=== PATIENT | female | born 1950 | race Caucasian/White ===

== ENCOUNTER 2018-04-10 20:04 | Observation (INO) | payer MEDICARE, OTHER ==
[2018-04-10] MEDS ORDERED: diphenhydrAMINE 50 MG/ML SDV IVPUSH ONE (20:08)
[2018-04-10] MEDS ORDERED: Lactated Ringers 1,000 ML IV ONE (20:08)
[2018-04-10] MEDS ORDERED: LORazepam 2 MG/ML SDV IVPUSH ONE (21:28)
[2018-04-10] MEDS ORDERED: Aspirin 81 MG Tab.Chew PO ONE (21:44)
--- NOTE | 2018-04-10 22:43 | EDM.PDOC ---
ED HPI GENERAL MEDICAL PROBLEM - General Chief Complaint: Syncope Stated Complaint: DIZZY,SWEATY Time Seen by Provider: 04/10/18 20:10 Source of Information: Reports: Patient, RN History Limitations: Reports: Other (no old records) - History of Present Illness INITIAL COMMENTS - FREE TEXT/NARRATIVE: 67 yo female presents with dizziness, nausea, vomiting, and diaphoresis that came on suddenly while driving. No hx of vertigo, afib, CVA, elevated cholesterol, or AODM. Has a hx of borderline HTN and a FHx of CAD. No hx of tobacco use. Has no pain anywhere including her chest. Is traveling through the area on their way back to [facility]. 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 (see below) (none) denies pain Pain Score (Numeric/FACES): 0 - Related Data Allergies Allergy/AdvReac Type Severity Reaction Status Date / Time amoxicillin Allergy Rash Verified 04/10/18 20:48 Home Meds: Home Meds NK [No Known Home Meds] 04/10/18 [History] Past Medical History HEENT History: Reports: Glaucoma, Impaired Vision Cardiovascular History: Reports: Hypertension Respiratory History: Reports: Asthma 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 Denies: Fever, Fatigue HEENT: Reports: Vertigo Respiratory: Reports: No Symptoms Cardiovascular: Reports: No Symptoms Endocrine: Reports: No Symptoms GI/Abdominal: Reports: No Symptoms : Reports: No Symptoms Musculoskeletal: Reports: No Symptoms Skin: Reports: Diaphoresis (now gone) Neurological: Reports: Dizziness, Difficulty Walking, Gait Disturbance. Denies : Confusion, Headache, Numbness, Paresthesia, Seizure, Syncope, Tingling, Tremors, Trouble Speaking, Change in Speech Psychiatric: Reports: No Symptoms ED EXAM, DIZZINESS - Physical Exam Exam: See Below Exam Limited By: No Limitations General Appearance: Alert, WD/WN, Mild Distress Eye Exam: Bilateral Eye: Nystagmus (subtle, not pronounced) Ears: Normal External Exam, Normal Canal, Hearing Grossly Normal, Normal TMs Nose: Normal Inspection, Normal Mucosa, No Blood Throat/Mouth: Normal Inspection, Normal Lips, Normal Oropharynx, Normal Voice, No Airway Compromise Head Exam: Atraumatic, Normocephalic Vertigo: reproducible (better with lying still, worse again with any movement.) Neck: Normal Inspection, Supple, Non-Tender. No: Carotid Bruit Respiratory/Chest: No Respiratory Distress, Lungs Clear, Normal Breath Sounds, No Accessory Muscle Use Cardiovascular: Regular Rate, Rhythm, No Edema GI/Abdominal: Normal Bowel Sounds, Soft, Non-Tender, No Distention Neurological: Alert, Normal Mood/Affect, Normal Dorsiflexion, CN II-XII Intact, No Motor/Sensory Deficits, Oriented x 3, Difficulty Walking. No: Normal Gait Back Exam: Normal Inspection Extremities: Normal Inspection, Normal Range of Motion, Non-Tender, No Pedal Edema Psychiatric: Normal Affect, Normal Mood Skin Exam: Warm, Dry, Intact, Normal Color, No Rash Course - Vital Signs Text/Narrative:: Sx's improved after diphenhydramine and a liter of LR, not able to walk still. Sx's reduced further after lorazepam, but still not able to walk. No longer experiencing nausea. Last Recorded V/S: Last Vital Signs Temp 36.2 C 04/10/18 20:09 Pulse 62 04/10/18 23:06 Resp 14 04/10/18 23:06 BP 135/90 04/10/18 23:06 Pulse Ox 95 04/10/18 23:06 Orthostatic Blood Pressure [ 138/87 Standing] Orthostatic Blood Pressure [ 140/88 Sitting] Orthostatic Blood Pressure [ 144/85 Supine] - Orders/Labs/Meds Orders: Active Orders 24 hr Category Date Time Status Head wo Cont [CT] Stat Exams 04/10/18 22:41 Taken Lactated Ringers @ 150 MLS/HR(1,000ml) Med 04/10/18 23:30 Ordered Lactated Ringers [Ringers, Lactated] 1,000 ml IV ASDIRECTED Medication Orders Lactated Ringer's (Ringers, Lactated) 1,000 mls @ 150 mls/hr IV ASDIRECTED RAFI Last Admin: 04/10/18 23:28 Dose: 150 mls/hr Labs: Laboratory Tests 04/10/18 04/10/18 04/10/18 Range/Units 22:42 22:42 23:18 WBC 13.2 H (4.5-11.0) K/uL RBC 3.89 (3.30-5.50) M/uL Hgb 11.8 L (12.0-15.0) g/dL Hct 35.5 L (36.0-48.0) % MCV 91 (80-98) fL MCH 30 (27-31) pg MCHC 33 (32-36) % Plt Count 255 (150-400) K/uL Sodium 140 (140-148) mmol/L Potassium 3.7 (3.6-5.2) mmol/L Chloride 107 (100-108) mmol/L Carbon Dioxide 25 (21-32) mmol/L Anion Gap 8.3 (5.0-14.0) mmol/L BUN 24 H (7-18) mg/dL Creatinine 0.8 (0.6-1.0) mg/dL Est Cr Clr Drug Dosing 66.36 mL/min Estimated GFR (MDRD) > 60 (>60) Glucose 116 H (74-106) mg/dL Calcium 9.0 (8.5-10.1) mg/dL Urine Color Yellow Urine Appearance Clear Urine pH 5.0 (4.5-8.0) Ur Specific [place] 1.030 (1.008-1.030) Urine Protein Negative (NEGATIVE) mg/dL Urine Glucose (UA) Normal (NEGATIVE) mg/dL Urine Ketones Negative (NEGATIVE) mg/dL Urine Occult Blood Negative (NEGATIVE) Urine Nitrite Negative (NEGATIVE) Urine Bilirubin Negative (NEGATIVE) Urine Urobilinogen Normal (NORMAL) mg/dL Ur Leukocyte Esterase Negative (NEGATIVE) Urine RBC 0-5 (0-5) Urine WBC 0-5 (0-5) Ur Epithelial Cells Few Amorphous Sediment Few Urine Bacteria Not seen Urine Mucus Not seen Meds: Medications Generic Name Dose Route Start Last Admin Trade Name Edie PRN Reason Stop Dose Admin Lactated Ringer's 1,000 mls @ 150 mls/hr 04/10/18 23:30 04/10/18 23:28 Ringers, Lactated IV 150 mls/hr ASDIRECTED RAFI Administration Discontinued Medications Generic Name Dose Route Start Last Admin Trade Name Edie PRN Reason Stop Dose Admin Aspirin 324 mg 04/10/18 21:44 04/10/18 21:51 Aspirin PO 04/10/18 21:45 324 mg ONETIME ONE Administration Diphenhydramine HCl 50 mg 04/10/18 20:08 04/10/18 20:30 Benadryl IVPUSH 04/10/18 20:09 50 mg ONETIME ONE Administration Lactated Ringer's 1,000 mls @ 1,000 mls/hr 04/10/18 20:08 04/10/18 20:30 Ringers, Lactated IV 04/10/18 21:07 1,000 mls/hr BOLUS ONE Administration Lorazepam 1 mg 04/10/18 21:28 04/10/18 21:45 Ativan IVPUSH 04/10/18 21:29 1 mg ONETIME ONE Administration - Radiology Interpretation Free Text/Narrative:: Head CT-neg CT Results Date: 04/10/18 CT Results Time: 23:30 Departure - Departure Time of Disposition: 23:35 Disposition: Refer to Observation Condition: Fair Clinical Impression: Vertigo, Ataxia Nausea and vomiting Qualifiers: Vomiting type: unspecified Vomiting Intractability: non-intractable Qualified Code(s): R11.2 - Nausea with vomiting, unspecified - Discharge Information *PRESCRIPTION DRUG MONITORING PROGRAM REVIEWED*: Not Applicable *COPY OF PRESCRIPTION DRUG MONITORING REPORT IN PATIENT JOSE: Not Applicable Referrals: PCP,None [Primary Care Provider] - Forms: ED Department Discharge - My Orders Last 24 Hours: My Active Orders 04/10/18 22:41 Head wo Cont [CT] Stat 04/10/18 23:30 Lactated Ringers @ 150 MLS/HR(1,000ml) Lactated Ringers [Ringers, Lactated] 1, 000 ml IV ASDIRECTED - Assessment/Plan Last 24 Hours: My Active Orders 04/10/18 22:41 Head wo Cont [CT] Stat 04/10/18 23:30 Lactated Ringers @ 150 MLS/HR(1,000ml) Lactated Ringers [Ringers, Lactated] 1, 000 ml IV ASDIRECTED
[2018-04-10] MEDS: Lactated Ringers 1,000 ML IV SCH (23:28)
--- NOTE | 2018-04-10 23:41 | PCM.HP ---
H&P History of Present Illness - General Date of Service: 04/10/18 Admit Problem/Dx: Admission Diagnosis/Problem Admission Diagnosis/Problem Vertigo Source of Information: Patient, Provider, RN History Limitations: Reports: Other (sedated) - History of Present Illness Initial Comments - Free Text/Narative: 67 yo female presents with dizziness, nausea, vomiting, and diaphoresis that came on suddenly while driving. No hx of vertigo, afib, CVA, elevated cholesterol, or AODM. Has a hx of borderline HTN and a FHx of CAD. No hx of tobacco use. Has no pain anywhere including her chest. Is traveling through the area on their way back to [facility] [place]. Onset: Today, Sudden Onset of Symptoms: Reports: Sudden Duration of Symptoms: Reports: Hour(s): Location: Reports: Generalized (vertigo with nauea, vomiting, loss of balance) Severity: Severe Improves with: Reports: Rest Worsens with: Reports: Movement Associated Symptoms: Reports: Nausea/Vomiting, Other (loss of balance) denies pain Pain Score (Numeric/FACES): 0 - Related Data Allergies/Adverse Reactions: Allergies Allergy/AdvReac Type Severity Reaction Status Date / Time amoxicillin Allergy Rash Verified 04/10/18 20:48 Home Medications: Home Meds NK [No Known Home Meds] 04/10/18 [History] Past Medical History HEENT History: Reports: Glaucoma, Impaired Vision Cardiovascular History: Reports: Hypertension 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: Reports: Asthma 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.) H&P Review of Systems - Review of Systems: Review Of Systems: See Below General: Reports: Other (vertigo with nausea, vomiting, loss of balance.) HEENT: Reports: Glasses Pulmonary: Reports: No Symptoms Cardiovascular: Reports: Lightheadedness (vertigo, sudden onset this evening while driving.) Gastrointestinal: Reports: Nausea, Vomiting Genitourinary: Reports: No Symptoms Musculoskeletal: Reports: No Symptoms Skin: Reports: No Symptoms Psychiatric: Reports: No Symptoms Neurological: Reports: Dizziness, Difficulty Walking (due to severe dizziness) Hematologic/Lymphatic: Reports: No Symptoms Immunologic: Reports: No Symptoms Exam - Exam Exam: See Below - Vital Signs Vital Signs: Last Vital Signs Temp 36.2 C 04/10/18 20:09 Pulse 62 04/10/18 23:06 Resp 14 04/10/18 23:06 BP 135/90 04/10/18 23:06 Pulse Ox 95 04/10/18 23:06 Orthostatic Blood Pressure [ 138/87 Standing] Orthostatic Blood Pressure [ 140/88 Sitting] Orthostatic Blood Pressure [ 144/85 Supine] Weight: 73.936 kg - Exam Quality Assessment: Other (IV fluids) General: Alert, Oriented, Cooperative, Sedated HEENT: PERRLA, Conjunctiva Clear, EACs Clear, EOMI, Hearing Intact, Mucosa Moist & Schlusser, Nares Patent, Normal Nasal Septum, Posterior Pharynx Clear, TMs Clear Neck: Supple, Trachea Midline Lungs: Clear to Auscultation, Normal Respiratory Effort Cardiovascular: Regular Rate, Regular Rhythm GI/Abdominal Exam: Normal Bowel Sounds Back Exam: Normal Inspection, Full Range of Motion, NT Extremities: Normal Inspection Peripheral Pulses: 2+: Radial (L), Radial (R), Dorsalis Pedis (L), Dorsalis Pedis (R) Skin: Warm, Dry, Intact Neurological: Cranial Nerves Intact, Reflexes Equal Bilateral, Strength Equal Bilateral, Normal Speech, Other (unsteady gait due to vertigo) Psychiatric: Alert, Normal Affect, Normal Mood - Patient Data Lab Results Last 24 hrs: Laboratory Results - last 24 hr 04/10/18 04/10/18 04/10/18 Range/Units 22:42 22:42 23:18 WBC 13.2 H (4.5-11.0) K/uL RBC 3.89 (3.30-5.50) M/uL Hgb 11.8 L (12.0-15.0) g/dL Hct 35.5 L (36.0-48.0) % MCV 91 (80-98) fL MCH 30 (27-31) pg MCHC 33 (32-36) % Plt Count 255 (150-400) K/uL Sodium 140 (140-148) mmol/L Potassium 3.7 (3.6-5.2) mmol/L Chloride 107 (100-108) mmol/L Carbon Dioxide 25 (21-32) mmol/L Anion Gap 8.3 (5.0-14.0) mmol/L BUN 24 H (7-18) mg/dL Creatinine 0.8 (0.6-1.0) mg/dL Est Cr Clr Drug Dosing 66.36 mL/min Estimated GFR (MDRD) > 60 (>60) Glucose 116 H (74-106) mg/dL Calcium 9.0 (8.5-10.1) mg/dL Urine Color Yellow Urine Appearance Clear Urine pH 5.0 (4.5-8.0) Ur Specific [place] 1.030 (1.008-1.030) Urine Protein Negative (NEGATIVE) mg/dL Urine Glucose (UA) Normal (NEGATIVE) mg/dL Urine Ketones Negative (NEGATIVE) mg/dL Urine Occult Blood Negative (NEGATIVE) Urine Nitrite Negative (NEGATIVE) Urine Bilirubin Negative (NEGATIVE) Urine Urobilinogen Normal (NORMAL) mg/dL Ur Leukocyte Esterase Negative (NEGATIVE) Urine RBC 0-5 (0-5) Urine WBC 0-5 (0-5) Ur Epithelial Cells Few Amorphous Sediment Few Urine Bacteria Not seen Urine Mucus Not seen Result Diagrams: 04/10/18 22:42 04/10/18 22:42 - Problem List (1) Nausea and vomiting SNOMED Code(s): 12471044 ICD Code: R11.2 - NAUSEA WITH VOMITING, UNSPECIFIED Status: Acute Priority: High Current Visit: Yes Qualifiers: Vomiting type: unspecified Vomiting Intractability: non-intractable Qualified Code(s): R11.2 - Nausea with vomiting, unspecified (2) Vertigo SNOMED Code(s): 932950550 ICD Code: R42 - DIZZINESS AND GIDDINESS Status: Acute Priority: High Current Visit: Yes Problem List Initiated/Reviewed/Updated: Yes Orders Last 24hrs: Active Orders 24 hr Category Date Time Status Patient Status Manage Transfer [TRANSFER] Routine ADT 04/10/18 23:30 Ordered Head wo Cont [CT] Stat Exams 04/10/18 22:41 Taken Lactated Ringers [Ringers, Lactated] 1,000 ml Med 04/10/18 23:30 Active IV ASDIRECTED Resuscitation Status Routine Resus Stat 04/10/18 23:32 Ordered Medication Orders Lactated Ringer's (Ringers, Lactated) 1,000 mls @ 150 mls/hr IV ASDIRECTED [facility] Last Admin: 04/10/18 23:28 Dose: 150 mls/hr Assessment/Plan Comment:: ASSESSMENT / PLAN This is a 67 year old female presents to ER via POV with concerns of dizziness with nausea and vomiting. Mrs. Francis report moving her Daughter and Granddaughter from [place] to [facility] [place], driving thru [employer] , had a sudden onset of dizziness for 10 minutes then started with uncontrolled nausea and vomiting. Mrs. Francis reports in good health, not taking any medications on a regular basis. She has not had any episodes of dizziness. denies injuries or fall past or present. Labs done is ER , CBC; wbc 13.2, hgb 11.8, hct 35.5, plt 255 BMP Na+140, K+3.7, cl 107, anion gap 8.3, bun 24, cr 0.8, glucose 116., normal. Urine with micro; negative Imaging; CT Head without contrast no acute process is noted. tried to walk but any time she sat up and tried to ambulate became profoundly dizzy, loss of balance with nausea and vomiting. She was given IV Ativan 1 mg., Benadryl 25mg and IV fluids LR to relieve symptoms. Will plan to admit OBS to treat symptoms and reassess in am. Vertigo with nausea and vomiting -IV hydration with LR at 150ml/hr -IV Ativan 1 mg every 6 hr prn nausea and vomiting -PO Benadryl 25mg every 4 to 6 hours prn -referral to OT and PT for discharge planning -am labs; cbc, bmp Maintenance issues -Orders home meds:no routine medication -Nutrition: Regular diet -Longoria catheter not indicated at this time -DVT:Lovenox 30mg subcut daily -GI Prophalaxis; Protonix 40mg daily CODE STATUS: Full Admission status: Admit to Observation -I expect this patient to stay less than 24 hours, not to exceed 96 hours for evaluation and management of this problem. Disposition: home with family Primary care provider: [facility], does not have a Primary Care Provider Hospitalist: Dr. Armas
[2018-04-11] MEDS ORDERED: Acetaminophen 325 MG Tab PO PRN (00:34)
[2018-04-11] MEDS ORDERED: Melatonin 3 MG Tab PO PRN (00:34)
[2018-04-11] MEDS ORDERED: LORazepam 2 MG/ML SDV IV PRN (00:34)
[2018-04-11] MEDS ORDERED: Docusate Sodium 100 MG Cap PO PRN (00:34)
[2018-04-11] MEDS ORDERED: Morphine 2 MG/ML Syringe IVPUSH PRN (00:34)
[2018-04-11] MEDS ORDERED: Ondansetron 4 MG Tab.DIS PO PRN (00:34)
[2018-04-11] MEDS ORDERED: oxyCODONE 5 MG Tab PO PRN (00:34)
[2018-04-11] MEDS ORDERED: diphenhydrAMINE 25 MG Cap PO PRN (00:34)
[2018-04-11] MEDS ORDERED: Albuterol 0.083% 2.5 MG/3 ML Neb Soln NEB PRN (00:34)
[2018-04-11] MEDS ORDERED: Pantoprazole 40 MG Vial IV ONE (01:00)
[2018-04-11] MEDS: Lactated Ringers 1,000 ML IV SCH ×2 (01:05→06:18)
[2018-04-11] MEDS ORDERED: Enoxaparin 40 MG/0.4 ML Syringe SUBCUT SCH (09:00)
--- NOTE | 2018-04-11 11:38 | PCM.DCSUM1 ---
Discharge Summary - Hospital Course Brief History: healthy 67-year-old female who presented with acute onset of dizziness with nausea and vomiting. She was admitted for observation and further management of presumed episode of vertigo. Diagnosis: Stroke: No - Discharge Data Discharge Date: 04/11/18 Discharge Disposition: Home, Self-Care 01 Condition: Good - Discharge Diagnosis/Problem(s) (1) Vertigo SNOMED Code(s): 555571758 ICD Code: R42 - DIZZINESS AND GIDDINESS Status: Acute Priority: High Current Visit: Yes (2) Nausea and vomiting SNOMED Code(s): 90821674 ICD Code: R11.2 - NAUSEA WITH VOMITING, UNSPECIFIED Status: Acute Priority: High Current Visit: Yes Qualifiers: Vomiting type: unspecified Vomiting Intractability: non-intractable Qualified Code(s): R11.2 - Nausea with vomiting, unspecified - Patient Summary/Data Consults: Consultations 04/11/18 00:34 OT Evaluation and Treatment [CONS] Routine Please Evaluate and Treat. OT Reason for Consult: Discharge Planning This query below is only for informational purposes and is not editable. PT Evaluation and Treatment [CONS] Routine Please Evaluate and Treat. PT Reason for Consult: Vestibular This query below is only for informational purposes and is not editable. Hospital Course: Adriane presented to the emergency room with acute onset dizziness as well as nausea and vomiting. Workup in the emergency room was unremarkable including laboratory studies and a head CT. Vertigo was suspected. After several doses of medications used for symptom management she had persistent symptoms and was unable to stand. She was admitted to the hospital for observation. She received some IV fluids overnight. By the morning after admission her symptoms have improved dramatically. She has only very mild residual dizziness. She has not had any nausea or vomiting. She has tolerated the gentle diet. She was able to shower without significant symptoms. I believe she is safe for outpatient management at this time. I suspect she had an episode of benign positional vertigo. I did provide a prescription for meclizine to use if she has additional symptoms. She will follow-up with her primary care in [place] when she returns if she has additional symptoms or concerns. - Patient Instructions Diet: Regular Diet as Tolerated Activity: As Tolerated Driving: May Drive Today Showering/Bathing: May Shower Notify Provider of: Fever, Nausea and/or Vomiting Other/Special Instructions: 1. You were in the hospital for observation after you developed severe dizziness with nausea and vomiting. Your symptoms have improved significantly. I suspect the dizziness was caused by an episode of benign positional vertigo. I have included some information about this condition. I have provided a prescription for meclizine which you can use as needed if you have additional episodes of dizziness. 2. Continue your usual home medications as previously prescribed. 3. Seek medical attention if you develop fever greater than 101 or if you have a return of the severe dizziness or persistent vomiting. - Discharge Plan *PRESCRIPTION DRUG MONITORING PROGRAM REVIEWED*: Not Applicable *COPY OF PRESCRIPTION DRUG MONITORING REPORT IN PATIENT JOSE: Not Applicable Prescriptions/Med Rec: Meclizine [Antivert] 25 mg PO Q6H PRN #10 tab PRN Reason: vertigo Home Medications: Home Meds Brimonidine Tartrate [Alphagan P 0.1% Ophth Soln] 1 drop EYELF TID 04/11/18 [ History] Dorzolamide/Timolol [Cosopt 2%-0.5% Ophth Soln] 1 drop EYEBOTH BID 04/11/18 [ History] Meclizine [Antivert] 25 mg PO Q6H PRN #10 tab 04/11/18 [Rx] Pilocarpine [Pilocar 1% Ophth Soln] 1 drop EYELF QID 04/11/18 [History] Patient Handouts: Benign Positional Vertigo, Meclizine tablets or capsules Referrals: PCP,None [Primary Care Provider] - (f/u as needed if symptoms return) - Discharge Summary/Plan Comment DC Time >30 min.: No - Patient Data Vitals - Most Recent: Last Vital Signs Temp 35.7 C 04/11/18 10:52 Pulse 66 04/11/18 10:52 Resp 16 04/11/18 10:52 BP 139/80 04/11/18 10:52 Pulse Ox 95 04/11/18 10:52 Orthostatic Blood Pressure [ 138/87 Standing] Orthostatic Blood Pressure [ 140/88 Sitting] Orthostatic Blood Pressure [ 144/85 Supine] Weight - Most Recent: 75.659 kg I&O - Last 24 hours: Intake & Output 04/10/18 04/11/18 04/11/18 22:59 06:59 14:59 Intake Total 724 10 Output Total 500 Balance 724 -490 Lab Results - Last 24 hrs: Laboratory Results - last 24 hr 04/10/18 04/10/18 04/10/18 Range/Units 22:42 22:42 23:18 WBC 13.2 H (4.5-11.0) K/uL RBC 3.89 (3.30-5.50) M/uL Hgb 11.8 L (12.0-15.0) g/dL Hct 35.5 L (36.0-48.0) % MCV 91 (80-98) fL MCH 30 (27-31) pg MCHC 33 (32-36) % Plt Count 255 (150-400) K/uL Neut % (Auto) (36-66) % Lymph % (Auto) (24-44) % [facility] % (Auto) (2-6) % Eos % (Auto) (2-4) % Baso % (Auto) (0-1) % Sodium 140 (140-148) mmol/L Potassium 3.7 (3.6-5.2) mmol/L Chloride 107 (100-108) mmol/L Carbon Dioxide 25 (21-32) mmol/L Anion Gap 8.3 (5.0-14.0) mmol/L BUN 24 H (7-18) mg/dL Creatinine 0.8 (0.6-1.0) mg/dL Est Cr Clr Drug Dosing 66.36 mL/min Estimated GFR (MDRD) > 60 (>60) Glucose 116 H (74-106) mg/dL Calcium 9.0 (8.5-10.1) mg/dL Urine Color Yellow Urine Appearance Clear Urine pH 5.0 (4.5-8.0) Ur Specific [place] 1.030 (1.008-1.030) Urine Protein Negative (NEGATIVE) mg/dL Urine Glucose (UA) Normal (NEGATIVE) mg/dL Urine Ketones Negative (NEGATIVE) mg/dL Urine Occult Blood Negative (NEGATIVE) Urine Nitrite Negative (NEGATIVE) Urine Bilirubin Negative (NEGATIVE) Urine Urobilinogen Normal (NORMAL) mg/dL Ur Leukocyte Esterase Negative (NEGATIVE) Urine RBC 0-5 (0-5) Urine WBC 0-5 (0-5) Ur Epithelial Cells Few Amorphous Sediment Few Urine Bacteria Not seen Urine Mucus Not seen 04/11/18 04/11/18 Range/Units 04:50 04:50 WBC 9.0 (4.5-11.0) K/uL RBC 3.62 (3.30-5.50) M/uL Hgb 11.1 L (12.0-15.0) g/dL Hct 33.1 L (36.0-48.0) % MCV 91 (80-98) fL MCH 31 (27-31) pg MCHC 34 (32-36) % Plt Count 238 (150-400) K/uL Neut % (Auto) 60 (36-66) % Lymph % (Auto) 26 (24-44) % [facility] % (Auto) 11 H (2-6) % Eos % (Auto) 2 (2-4) % Baso % (Auto) 0 (0-1) % Sodium 142 (140-148) mmol/L Potassium 3.8 (3.6-5.2) mmol/L Chloride 109 H (100-108) mmol/L Carbon Dioxide 25 (21-32) mmol/L Anion Gap 11.8 (5.0-14.0) mmol/L BUN 21 H (7-18) mg/dL Creatinine 0.8 (0.6-1.0) mg/dL Est Cr Clr Drug Dosing 66.36 mL/min Estimated GFR (MDRD) > 60 (>60) Glucose 96 (74-106) mg/dL Calcium 8.6 (8.5-10.1) mg/dL Urine Color Urine Appearance Urine pH (4.5-8.0) Ur Specific [place] (1.008-1.030) Urine Protein (NEGATIVE) mg/dL Urine Glucose (UA) (NEGATIVE) mg/dL Urine Ketones (NEGATIVE) mg/dL Urine Occult Blood (NEGATIVE) Urine Nitrite (NEGATIVE) Urine Bilirubin (NEGATIVE) Urine Urobilinogen (NORMAL) mg/dL Ur Leukocyte Esterase (NEGATIVE) Urine RBC (0-5) Urine WBC (0-5) Ur Epithelial Cells Amorphous Sediment Urine Bacteria Urine Mucus Med Orders - Current: Current Medications Acetaminophen (Tylenol) 650 mg PO Q4H PRN PRN Reason: Pain (Mild 1-3)/fever Albuterol (Proventil Neb Soln) 2.5 mg NEB Q4H PRN PRN Reason: Shortness Of Breath/wheezing Diphenhydramine HCl (Benadryl) 25 mg PO Q4H PRN PRN Reason: Other Docusate Sodium (Colace) 100 mg PO BID PRN PRN Reason: Constipation Enoxaparin Sodium (Lovenox) 40 mg SUBCUT DAILY [facility] Last Admin: 04/11/18 10:03 Dose: 40 mg Lactated Ringer's (Ringers, Lactated) 1,000 mls @ 150 mls/hr IV ASDIRECTED [facility] Last Admin: 04/11/18 06:18 Dose: 150 mls/hr Lorazepam (Ativan) 1 mg IV Q6H PRN PRN Reason: Nausea/Vomiting Melatonin (Melatonin) 6 mg PO BEDTIME PRN PRN Reason: Insomnia Morphine Sulfate (Morphine) 2 mg IVPUSH Q2H PRN PRN Reason: Pain (severe 7-10) Ondansetron HCl (Zofran Odt) 4 mg PO Q6H PRN PRN Reason: Nausea able to take PO Oxycodone HCl (Oxycodone) 5 mg PO Q4H PRN PRN Reason: Pain (moderate 4-6) Discontinued Medications Aspirin (Aspirin) 324 mg PO ONETIME ONE Stop: 04/10/18 21:45 Last Admin: 04/10/18 21:51 Dose: 324 mg Diphenhydramine HCl (Benadryl) 50 mg IVPUSH ONETIME ONE Stop: 04/10/18 20:09 Last Admin: 04/10/18 20:30 Dose: 50 mg Lactated Ringer's (Ringers, Lactated) 1,000 mls @ 1,000 mls/hr IV BOLUS ONE Stop: 04/10/18 21:07 Last Admin: 04/10/18 20:30 Dose: 1,000 mls/hr Lorazepam (Ativan) 1 mg IVPUSH ONETIME ONE Stop: 04/10/18 21:29 Last Admin: 04/10/18 21:45 Dose: 1 mg Pantoprazole Sodium (Protonix Iv) 40 mg IV ONETIME ONE Stop: 04/11/18 01:01 Last Admin: 04/11/18 01:11 Dose: 40 mg - Exam Quality Assessment: Denies: Supplemental Oxygen General: Reports: Alert, Oriented, Cooperative, No Acute Distress Lungs: Reports: Normal Respiratory Effort GI/Abdominal Exam: Soft, No Distention Extremities: No Pedal Edema Psy/Mental Status: Reports: Alert, Normal Affect
== END 2018-04-11 12:20 | disposition home or self-care (01) ==
LOC: JP.ED 20:04 → JP.MS 23:30
PROVIDERS: ADMIT Internal Medicine; ATTEND Internal Medicine
DX: R42 Dizziness and giddiness (principal); R11.2 Nausea with vomiting, unspecified; I10 Essential (primary) hypertension; J45.909 Unspecified asthma, uncomplicated
CPT/HCPCS: 36415; 70450; 80048; 81001; 85025; 85027; 95992-GO; 96361; 96372; 96374; 96375; 97165-GO; 97530-GO; 99217; 99218; 99285-25; A9270-GY; C9113; G0378; J1200; J1650; J2060; J7120